=== PATIENT | female | born 2000 | race Caucasian/White ===

== ENCOUNTER 2021-06-20 11:42 | Outpatient (CLI) | payer OTHER, SELFPAY ==
[2021-06-20 14:33] LABS: Influenza A QL RT-PCR Negative (Negative); Influenza B QL RT-PCR Negative (Negative); SARS-CoV-2 RNA PCR Negative (Negative)
== END 2021-06-20 11:43 | disposition home or self-care (01) ==
LOC: CHSLAB 11:49
PROVIDERS: PCP Internal Medicine; Visit Provider Internal Medicine
DX: J06.9 Acute upper respiratory infection, unspecified (principal); Z20.822 Contact with and (suspected) exposure to COVID-19
CPT/HCPCS: 87502; C9803; U0003; U0005

== ENCOUNTER 2024-08-06 09:38 | Outpatient (CLI) | payer OTHER, SELFPAY ==
[2024-08-06 10:22] LABS: Hematocrit 39.6 % (37.0-47.0); Hemoglobin 12.9 g/dL (12.0-15.0); Mean Corpuscular HGB Conc 32.6 g/dl (32-36); Mean Corpuscular Hemoglobin 28.2 pg (26-34); Mean Corpuscular Volume 86.5 fl (80-100); Mean Platelet Volume 11.5 fl (7.4-10.4); Platelet Count Result 259 k/mm3 (150-375); Red Blood Count 4.58 M/mm3 (4.2-5.4); Red Cell Distribution Width 13.2 % (11.5-14.5); White Blood Count 9.4 K/mm3 (4.5-10.0)
[2024-08-06 10:54] LABS: Rapid Plasma Reagin Non-Reactive (NonReactive)
[2024-08-06 11:06] LABS: Hepatitis B Surface Antigen Negative (Negative)
[2024-08-06 11:23] LABS: HIV 1/2 Ab P24 Ag Result Negative (Negative)
[2024-08-06 11:40] LABS: Rubella IgG Antibody > 110.0 IU/ML
[2024-08-09 16:08] LABS: Varicella IgG Antibody 3.36 S/CO
== END 2024-08-06 09:39 | disposition home or self-care (01) ==
LOC: ANHLAB 09:39
PROVIDERS: PCP Internal Medicine; Visit Provider Student in an Organized Health Care Education/Training Program
DX: N91.2 Amenorrhea, unspecified (principal)
CPT/HCPCS: 36415; 84702; 85027; 86592; 86644; 86703; 86747; 86762; 86787; 86850; 86900; 86901; 87086; 87340; G0432

== ENCOUNTER 2024-12-30 09:02 | Outpatient (CLI) | payer OTHER, SELFPAY ==
[2024-12-30 10:25] LABS: Hematocrit 39.1 % (37.0-47.0); Hemoglobin 12.7 g/dL (12.0-15.0); Immature Granulocyte Percent A 1.0 % (0-0.5); Lymphocytes Absolute Auto 1.93 K/mm3 (0.9-3.2); Mean Corpuscular HGB Conc 32.5 g/dl (32-36); Mean Corpuscular Hemoglobin 28.6 pg (26-34); Mean Corpuscular Volume 88.1 fl (80-100); Nucleated Red Blood Cells Absolute Auto 0.000 K/mm3 (0.0-0.012); Nucleated Red Blood Cells Perc 0.0 % (0.0-0.2); Platelet Count Result 197 k/mm3 (150-375); Red Blood Count 4.44 M/mm3 (4.2-5.4); White Blood Count 12.4 K/mm3 (4.5-10.0)
[2024-12-30 10:36] LABS: Glucose 1 Hour PP 50gm Dose 56 mg/dL
[2024-12-30 11:10] LABS: Syphilis IgG/IgM Antibody Non-Reactive (Nonreactive)
[2024-12-30 11:18] LABS: HIV 1/2 Ab P24 Ag Result Negative (Negative)
== END 2024-12-30 09:03 | disposition home or self-care (01) ==
LOC: ANHLAB 09:02
PROVIDERS: Visit Provider Student in an Organized Health Care Education/Training Program
DX: Z34.90 Encounter for supervision of normal pregnancy, unspecified, unspecified trimester (principal); Z3A.00 Weeks of gestation of pregnancy not specified
CPT/HCPCS: 36415; 82947; 85025; 86593; 86703; G0432

== ENCOUNTER 2025-03-16 16:58 | Inpatient (IN) | payer OTHER, SELFPAY ==
[2025-03-16] VITALS (11 sets, daily range): BP systolic 111–135; BP diastolic 68–86; PULSE 65–76; BMI 24.8
--- NOTE | 2025-03-16 17:22 | P.PNAN_ITS ---
Anes - Eval Pre Procedure Procedure: labor epidural Date/Time: 03/16/25 17:22 Surgeon: vilma Preop Diagnosis: pain during labor Pre Op Diagnosis: IOL Patient Data Age: 24 Gender: F Height: Weight: Allergies Allergy/AdvReac Type Severity Reaction Status Date / Time Penicillins Allergy Intermediate Hives Verified 03/09/25 08:16 Home Medications ?Medication ?Instructions ?Recorded ?Confirmed ?Type docosahexaenoic acid 200 mg mg PO 07/27/24 03/09/25 Hi story capsule ( DHA) metoclopramide HCl 10 mg tablet 10 mg PO Q6H PRN nause a and 10/19/24 03/09/25 Rx (Reglan) vomiting #20 tabs Patient hx anesthesia problems: none Family hx anesthesia problems: none Results Review: All pre-operative results and documents have been reviewed as part of the pre- operative evaluation. [facility] Family History Family History Grandparent No problems noted. Other No pertinent family history Social History Social History Smoking status: Never smoker Alcohol intake: never Substance use: never Substance use type: does not use Do You Feel Safe in your Home?: Yes Lack of Transportation: No Lack of Food: Never True Current Housing: I Have Housing Concerned About Future Housing: No Difficulty Paying Gas/Electric Bills: No Difficulty Paying for Meds: No Currently Unemployed: No Education: Bachelor's Degree Difficulty w/ Childcare or Family Care: No Living arrangements: with family Additional living arrangements comments: significant other/FOB Occupation/Education: occupation Additional occupation/education comments: [employer] Gender identity (if verbalized by the patient): Female Sexual Orientation (if Verbalized by the Patient): Straight or Heterosexual Spiritual care concerns: No Exam Day of Procedure 03/16/25 17:22
[2025-03-16 18:00] LABS: Hematocrit 38.1 % (37.0-47.0); Hemoglobin 12.6 g/dL (12.0-15.0); Immature Granulocyte Percent A 0.6 % (0-0.5); Lymphocytes Absolute Auto 2.27 K/mm3 (0.9-3.2); Mean Corpuscular HGB Conc 33.1 g/dl (32-36); Mean Corpuscular Hemoglobin 28.9 pg (26-34); Mean Corpuscular Volume 87.4 fl (80-100); Nucleated Red Blood Cells Absolute Auto 0.000 K/mm3 (0.0-0.012); Nucleated Red Blood Cells Perc 0.0 % (0.0-0.2); Platelet Count Result 167 k/mm3 (150-375); Red Blood Count 4.36 M/mm3 (4.2-5.4); White Blood Count 13.0 K/mm3 (4.5-10.0)
[2025-03-16] MEDS: DINOPROSTONE 10 MG VAG INSERT VAGINAL (18:18)
[2025-03-16 19:22] LABS: Syphilis IgG/IgM Antibody Non-Reactive (Nonreactive)
[2025-03-17] VITALS (331 sets, daily range): BP systolic 98–168; BP diastolic 31–148; PULSE 33–290; TEMP 36.6–38.1; O2SAT 74–100
[2025-03-17] MEDS: CALCIUM CARBONATE (TUMS) 500 MG (200 MG ELEMENTAL) PO (00:52)
[2025-03-17] MEDS: ONDANSETRON INJ 4 MG/2 ML VIAL IV PUSH (03:29)
--- NOTE | 2025-03-17 07:53 | P.HP_ITS ---
H&P: HPI History of Present Illness Date/Time: 03/17/25 07:53 Chief Complaint: Intrauterine at term Narrative: 24-year-old who presents at 39 weeks 3 days for elective induction of labor. Review of Systems Cardiovascular: Cardiovascular: Denies chest pain, Denies leg edema, Denies palpitations, Denies dyspnea and Denies dyspnea on exertion Respiratory: Respiratory: Denies cough, Denies dyspnea and Denies dyspnea on exertion Gastrointestinal: Gastrointestinal: Denies abdominal pain, Denies constipation, Denies diarrhea, Denies nausea and Denies vomiting Genitourinary: Genitourinary: Denies hematuria, Denies urinary frequency, Denies dysuria, Denies pelvic pain, Denies urinary incontinence and Denies vaginal discharge Neurologic: Reports system reviewed and no additional complaints, except as documented Psychiatric: Psychiatric: Reports no additional psychiatric complaints Endocrine: Endocrine: Denies palpitations [facility] Family History Family History Grandparent No problems noted. Other No pertinent family history Social History Social History Smoking status: Never smoker Alcohol intake: never Substance use: never Substance use type: does not use Do You Feel Safe in your Home?: Yes Lack of Transportation: No Lack of Food: Never True Current Housing: I Have Housing Concerned About Future Housing: No Difficulty Paying Gas/Electric Bills: No Difficulty Paying for Meds: No Currently Unemployed: No Education: Bachelor's Degree Difficulty w/ Childcare or Family Care: No Living arrangements: with family Additional living arrangements comments: significant other/FOB Occupation/Education: occupation Additional occupation/education comments: [employer] [place] [employer] Gender identity (if verbalized by the patient): Female Sexual Orientation (if Verbalized by the Patient): Straight or Heterosexual Spiritual care concerns: No Meds Home Medications and Allergies Home Medications ?Medication ?Instructions ?Recorded ?Confirmed ?Type docosahexaenoic acid 200 mg mg PO 07/27/24 03/09/25 Hi story capsule ( DHA) metoclopramide HCl 10 mg tablet 10 mg PO Q6H PRN nause a and 10/19/24 03/09/25 Rx (Reglan) vomiting #20 tabs Allergies Allergy/AdvReac Type Severity Reaction Status Date / Time Penicillins Allergy Intermediate Hives Verified 03/09/25 08:16 Vital Signs Vital Signs - 24 hr 03/16/25 17:35 03/16/25 17:39 03/16/25 18:01 Temperature Pulse Rate 76 70 Blood Pressure 135/81 111/81 Oxygen Delivery Room Air 03/16/25 18:31 03/16/25 18:46 03/16/25 19:01 Temperature Pulse Rate 68 70 69 Blood Pressure 129/78 124/86 127/74 Oxygen Delivery 03/16/25 19:16 03/16/25 19:31 03/16/25 19:46 Temperature Pulse Rate 70 72 73 Blood Pressure 123/77 126/80 129/79 Oxygen Delivery 03/16/25 20:01 03/16/25 20:16 03/16/25 20:31 Temperature Pulse Rate 71 68 65 Blood Pressure 119/75 122/77 113/68 Oxygen Delivery 03/17/25 00:55 03/17/25 01:01 03/17/25 01:31 Temperature Pulse Rate 59 L 59 L 56 L Blood Pressure 126/85 114/95 H 131/75 Oxygen Delivery 03/17/25 01:46 03/17/25 02:01 03/17/25 02:16 Temperature Pulse Rate 53 L 62 60 Blood Pressure 117/75 119/68 111/67 Oxygen Delivery 03/17/25 02:28 03/17/25 03:31 03/17/25 03:46 Temperature 98.2 F Pulse Rate 60 61 Blood Pressure 120/75 114/72 Oxygen Delivery 03/17/25 04:01 03/17/25 04:17 03/17/25 04:30 Temperature 98.6 F Pulse Rate 59 L 69 Blood Pressure 127/66 110/42 L Oxygen Delivery 03/17/25 04:31 03/17/25 04:46 03/17/25 05:01 Temperature Pulse Rate 65 73 65 Blood Pressure 117/71 121/80 130/82 Oxygen Delivery 03/17/25 05:16 03/17/25 05:31 03/17/25 05:46 Temperature Pulse Rate 64 64 58 L Blood Pressure 111/75 113/68 113/64 Oxygen Delivery 03/17/25 06:01 03/17/25 06:16 03/17/25 06:31 Temperature Pulse Rate 60 65 61 Blood Pressure 106/65 123/76 125/75 Oxygen Delivery 03/17/25 06:46 03/17/25 07:01 03/17/25 07:16 Temperature Pulse Rate 69 71 72 Blood Pressure 126/80 119/82 120/83 Oxygen Delivery 03/17/25 07:31 03/17/25 07:48 Temperature Pulse Rate 74 72 Blood Pressure 130/77 125/59 L Oxygen Delivery Exam Const: General: no acute distress Eyes: EOM: EOMs intact bilaterally Neck: Neck: supple Thyroid: thyroid normal Chest: Breast/axilla inspection: normal inspection of the breasts Breast/axilla palpation: normal palpation of the breasts, normal palpation of the axillae and no axillary lymphadenopathy Resp: Effort & Inspection: normal respiratory effort Auscultation: clear to auscultation bilaterally Cardio: Rate: regular rate Rhythm: regular rhythm GI: Inspection: non-distended and other (Gravid) GI Palp: Yes Soft to palpation, No Tenderness to palpation present (GI) and No Guarding due to palpation present (GI) Auscultation: normal bowel sounds : Speculum Exam - Vagina: No vaginal bleeding OB/external & speculum: external exam normal; No vaginal bleeding Skin: General skin exam: normal color and no rashes or lesions noted Neuro: Cognition (Neuro): normal cognition Speech: normal speech Extrem: General: normal to inspection Psych: Mental Status: mental status grossly normal Affect: normal affect H&P: Results Labs Labs: Short CBC 03/16/25 Range/Units 17:26 WBC 13.0 H (4.5-10.0) K/mm3 Hgb 12.6 (12.0-15.0) g/dL Hct 38.1 (37.0-47.0) % Plt Count 167 (150-375) k/mm3 Assessment and Plan Assessment and plan (1) : Code(s): Z34.90 - Encounter for supervision of normal , unspecified, unspecified trimester Status: Acute Assessment and Plan: 24-year-old who presents for elective induction of labor at 39 weeks 3 days Admit to L&D Routine admission orders Prenatals reviewed Rh positive GBS negative Will plan for Cervidil induction of labor Continuous EFM Patient may have epidural as needed
[2025-03-17] MEDS: LACTATED RINGERS 1,000 ML 999 ML IV CONT ×2 (09:11→10:32)
--- NOTE | 2025-03-17 11:50 | PM.OBPNLAB ---
Pain Control Date/time seen: 03/17/25 11:50 Pain control: epidural Pelvic Exam Dilation (cm): 1 Effacement (%): 75 station: -3 Amniotic membrane status: Intact Contractions Monitor mode: External Contraction pattern: Regular Status status: Category l Assessment and Plan Assessment: induction ongoing Comments: Cooks cervical balloon placed with 40mL of saline in each balloon. Will start pitocin augmentation
[2025-03-17] MEDS: OXYTOCIN 30 UNITS/NS 500 ML 30 UNITS/500 ML BAG IV CONT (11:57)
[2025-03-17] MEDS: LACTATED RINGERS 1,000 ML 125 ML IV CONT (13:05)
[2025-03-17] MEDS: FAMOTIDINE 20 MG/2 ML VIAL (13:06)
[2025-03-17] MEDS: LORATADINE 10 MG TABLET PO (14:31)
[2025-03-17] MEDS: SODIUM CHLORIDE 0.9% IV 300 ML 600 ML I-UTERINE (22:11)
[2025-03-17] MEDS: ACETAMINOPHEN 500 MG TABLET 1000 MG PO (22:13)
[2025-03-18] VITALS (87 sets, daily range): BP systolic 91–164; BP diastolic 41–107; PULSE 68–245; RESP 16–18; TEMP 36.3–36.8; O2SAT 98–100
[2025-03-18] MEDS: OXYTOCIN 30 UNITS/NS 500 ML 30 UNITS/500 ML BAG 999 UNITS IV CONT (01:04)
[2025-03-18] MEDS: LIDOCAINE 1% LOCAL INJ 20 ML VIAL (01:16)
--- NOTE | 2025-03-18 01:28 | PM.OBPRVD ---
OB - Vaginal Delivery Note Procedure Delivery date: 03/18/25 Induction method: Per Cervidil Protocol Delivery augmentation: Pitocin Delivery monitor: External FHT and Internal Uterine Route of delivery: Episiotomy description: None Laceration Description: Perineal - 1st Degree Delivery repair: vicryl Specimen: Yes (placenta) Quantitative Blood Loss (ml): 250 Anesthesia type: Epidural Disposition: Floor Complications: No immediate complications Narrative: Patient pushed for a spontaneous vaginal delivery. The fetus was delivered atraumatically and placed on the maternal abdomen. The cord was clamped and cut after 1 minute of life. The cord was double clamped and cut and a segment of cord was collected for cord gases. Cord blood was collected for blood type and Coomb's testing. The placenta delivered spontaneously and was noted to be intact. The perineum was inspected and a 1st degree perineal laceration was noted. The laceration was repaired with 3-0 vicryl in a running fashion. The fundus was noted to be firm and good hemostasis was noted. The mom and infant were stable in the delivery room. Baby Date of : 03/18/25 Time of : 01:03 Gestational Age by Date: 39 gender: Female presentation: vertex position: Right Occiput Anterior Placenta delivery description: Spontaneous Cord Vessel Description: 3 Vessels
[2025-03-18] MEDS: OXYTOCIN 30 UNITS/NS 500 ML 30 UNITS/500 ML BAG 125 UNITS IV CONT (01:34)
[2025-03-18] MEDS: IBUPROFEN 600 MG TABLET PO ×4 (04:23→22:46)
--- NOTE | 2025-03-18 04:29 | OBPPTRN ---
Patient transferred to post room #281 via wheelchair. Support person present. Oriented to unit, room, information board, rooming in, admission packet and security measures. Patient verbalizes understanding.
[2025-03-18] MEDS: DOCUSATE SODIUM 100 MG CAPSULE PO ×2 (10:53→16:58)
[2025-03-18] MEDS: MULTIVIT/MIN/PREN/FOL AC/IRON TABLET 1 TAB PO (10:54)
--- NOTE | 2025-03-18 14:00 | PC.NURSE ---
0640 Consulted with patient to assess needs related to . Discussed with mother her successes, concerns and any questions she has. We reviewed working with the infant, supporting breast, protecting her nipples with an optimal deep latch, good positioning, and good hand washing. Encouraged understanding the benefits of skin to skin, responding to feeding cues, frequencies of feeding 8-12 times in 24 hours (approximately 2-3 hours), duration of feedings, milk production, intake/output feeding sheet and signs of adequate intake encouraging swallowing at the breast. Reviewed positioning and alignment, supporting breast, off-centered (asymmetrical latch) and leading with the chin with big, open, wide gape. latched optimally to the [left] breast in [cradle] position. Education given to the mother of how to visualize the suckling (with good rocking jaw motion) swallows (dropping of the lower jaw) and how to listen for drinking at the breast (the ka sound). The was [able] to maintain latch without discomfort to mother. Nipple care reviewed with optimal latch, good positioning and using clean hands when touching her breast. Resources used to facilitate learning were used from the [visual handouts/ tool/mom and baby guide]. Mother voiced understanding of the education shared, to call for assistance if the does not latch or if there is discomfort with . Reported to the Primary RN. 1400 CLC RN checked in with patient and infant has been feeding well and latching optimally without pain. Mother advised to call for assistance if the does not latch or if there is discomfort with . Reported to the Primary RN.
[2025-03-19 05:30] LABS: Hematocrit 30.5 % (37.0-47.0); Hemoglobin 9.8 g/dL (12.0-15.0)
[2025-03-19 07:53] VITALS: BP 115/74; PULSE 79; RESP 16; TEMP 36.7; O2SAT 100
[2025-03-19] MEDS: IBUPROFEN 600 MG TABLET PO ×3 (09:06→20:45)
[2025-03-19] MEDS: DOCUSATE SODIUM 100 MG CAPSULE PO ×2 (09:08→17:17)
[2025-03-19] MEDS: MULTIVIT/MIN/PREN/FOL AC/IRON TABLET 1 TAB PO (09:08)
--- NOTE | 2025-03-19 10:07 | PM.OBDSVD ---
DS: Admitting Diagnosis Discharge Date 03/19/2025 Admitting Diagnosis OB - DS: Summary OB Procedures : None OB Procedures Intrapartum: Spontaneous Vag Delivery OB Procedures: : None Peripartum Data Laceration Description: Perineal - 1st Degree Episiotomy description: None Time Spent with Patient Time attestation: Total time spent providing and/or coordinating discharge services: DS: Data Data Completed and Pending Labs on day of discharge: Labs from last 24 hours 03/19/25 05:22 Hgb 9.8 L Hct 30.5 L Discharge Plan Discharge Discharging Clinician: Troy Puri Patient Disposition: Home Activity: as tolerated and pelvic rest Diet: as tolerated Discharge Instructions: Education: Mom and Baby Guide Given to: Mother Follow-Up: Call your delivering provider's office for an appointment to be seen. Mom [facility] baby [facility] for the follow-up appointment. Appointment Date/Time: March 22, 2025 at 10:00 am What to expect at your follow-up visit: Physical Assessment Call [phone] if you are unable to keep your appointment time. BREAST CARE: * Wear a snug supportive bra. * For engorgement discomfort: Breast Feeding: * Apply warm moist washcloths * Express milk as needed to relieve engorgement * Wear loose clothing * For sore nipples: * Identify correct latch-on * Apply warm moist washcloths before and after nursing * Air dry nipples after nursing * May apply Lansinoh cream to nipples PERINEAL CARE: * Until bleeding stops, use your rene bottle after urinating * Change your pad frequently throughout the day * You may take sitz baths several times a day (fill your bathtub with warm water and soak for 20 minutes.) Do NOT bathe in the water * No tub baths until seen by your physician - You may shower ACTIVITY: * Rest as much as possible. * Do not exercise or lift anything heavier than your baby (such as laundry or other children.) * Avoid stairs or driving as much as possible. * Do not put anything into the vagina. No douching, tampons, or sexual activity until seen by physician. NOTIFY PHYSICIAN IF YOU HAVE ANY QUESTIONS OR IF ANY OF THE FOLLOWING SYMPTOMS OCCUR: * If your perineumbecomes red, swollen, or more painful than what you have experienced in the hospital. * If your vaginal bleeding becomes foul smelling. * If your vaginal bleeding becomes more heavy than a period or if your bleeding changes from pink to bright red. However, you may pass an occasional walnut-sized clot once or twice for the first week . * If you experience a sharp, shooting pain in you calves. * If you discover a hard, reddened area on your breast or if you experience flu-like symptoms. DIET: * Eat regular, well-balanced meals. * Drink plenty of fluids daily. Patient Language: Latvian Stand Alone Forms: General Discharge Information Follow-up/Referrals: Immanuel Lawler MD [Physician, [facility] [facility] [facility]] - 3 Weeks Discharge Medications: New ibuprofen 600 mg Tablet 600 mg PO Q6H PRN (Reason: Cramping) Qty: 30 0RF Continued DHA 200 mg capsule PO metoclopramide HCl [Reglan] 10 mg tablet 10 mg PO Q6H PRN (Reason: nausea and vomiting) Qty: 20 0RF Date of admission: 03/16/25 16:58 Primary Care Provider: UNKNOWN,DOCTOR Admitting Provider: Immanuel Lawler Attending physician on admission: Immanuel Lawler Condition: Stable
--- NOTE | 2025-03-19 10:18 | PC.NURSE ---
Introductions were made, then consulted with patient to assess needs related to . Mother states that is going well and denies pain when infant is nursing. Infant was currently upon entering room and feeding was observed by this RN. Infant is in the cross cradle position and is latched optimally to the left breast. Proper education provided regarding not limiting infant to 15 minutes per breast until her milk is in. Swallows were noted and infants latch looks appropriate. Encouraged mother to call this RN if further assistance is needed or if any questions arise. Patient states understanding. Communication board updated.
[2025-03-19] MEDS: FAMOTIDINE 20 MG TABLET PO (12:08)
--- NOTE | 2025-03-19 17:06 | WPDANLDPN2 ---
Anes-Prog Note L&D Date/Time: 03/19/25 17:06 Comfortable throughout: labor and delivery Neuraxial method: epidural Epidural/Spinal procedure site: clean & non-tender Neuro status: Neuro function grossly intact. Cardiovascular status: normal Respiratory status: normal Airway patency: baseline Mental status: baseline Post-Op hydration status: normal Vital Signs: Last Vital Signs Temp 98.1 F 03/19/25 07:53 Pulse 79 03/19/25 07:53 Resp 16 03/19/25 07:53 BP 115/74 03/19/25 07:53 Pulse Ox 100 03/19/25 07:53 O2 Del Method Room Air 03/18/25 19:45 Pain score (VAS): 0/10 I/O: Pt indicated that two epidural were place with neither giving full relief, first on left multiple hotspots and the second had a right side deficiency from the groin down. Post-procedural complaints: none Patient feedback: Patient satisfied with anesthetic care.
[2025-03-19 20:35] VITALS: BP 111/70; PULSE 85; RESP 16; TEMP 36.7; O2SAT 99
[2025-03-20] MEDS: IBUPROFEN 600 MG TABLET PO (06:56)
[2025-03-20] MEDS: MULTIVIT/MIN/PREN/FOL AC/IRON TABLET 1 TAB PO (06:57)
[2025-03-20] MEDS: DOCUSATE SODIUM 100 MG CAPSULE PO (06:57)
[2025-03-20 07:00] VITALS: BP 125/83; PULSE 66; RESP 18; TEMP 36.7
--- NOTE | 2025-03-21 08:01 | S_PTH ---
PATIENT: Ele Layne LOC: [facility] U#:[id number] AGE/SX: 24/F ROOM: 281 RE03/16/[address]: Troy Puri MD : [id number] BED: 00 DIS: 03/20/2025 SPEC #: [id number] RECD: 03/21/25 09:09 STATUS: SLADE RENneka #: [id number] TERRY: 03/21/25 08:[address]: Immanuel Lawler DEPT: [facility] Surgical RECD BY: Evonne Quevedo ENTERED: 03/21/25 09:10 SP TYPE: Surgical OTHR DR: UNKNOWN,DOCTOR Tissues: A - Placenta Procedures: Hematoxylin and Eosin Stain Gross and Microscopic Level 5
[2025-03-22 10:32] VITALS: BP 122/87; PULSE 77; RESP 18; TEMP 36.9; O2SAT 100
== END 2025-03-20 09:30 | disposition home or self-care (01) | DRG 806 ==
LOC: ANHOB2 03-19 12:35 → ANHLDR 03-22 09:42
PROVIDERS: Admitting Provider Student in an Organized Health Care Education/Training Program; Visit Provider Obstetrics & Gynecology
DX: O77.0 Labor and delivery complicated by meconium in amniotic fluid (principal); O75.2 Pyrexia during labor, not elsewhere classified; Z37.0 Single live birth; Z3A.39 39 weeks gestation of pregnancy; O70.0 First degree perineal laceration during delivery
CPT/HCPCS: 36415; 85014; 85018; 85025; 86593; 86850; 86900; 86901; 88307; A9270; J2003; J2405; J2590; J2795; J7030; J7120